=== PATIENT | male | born 1970 | race Caucasian/White ===

== ENCOUNTER 2019-05-15 13:38 | Emergency (ER) | payer OTHER | END 2019-05-15 14:36 | disposition home or self-care (01) | LOC: JERFT 13:38 ==

== ENCOUNTER 2021-12-31 08:36 | Emergency (ER) | payer OTHER ==
[2021-12-31 08:53] VITALS: BP 143/92; PULSE 89; TEMP 97.9; BMI 34.0
[2021-12-31] MEDS ORDERED: ACETAMINOPHEN 500 MG TABLET (FP) PO ONE (09:31)
[2021-12-31] MEDS ORDERED: ACETAMINOPHEN 325 MG TABLET (FP) ONE (09:34)
== END 2021-12-31 10:45 | disposition home or self-care (01) ==
LOC: JER 08:36
DX: R39.84 Bilateral non-palpable testicles (principal)
CPT/HCPCS: 99283-25

== ENCOUNTER 2022-03-06 19:00 | Emergency (ER) | payer OTHER ==
[2022-03-06 19:20] VITALS: BP 148/78; PULSE 84; TEMP 98.1; BMI 34.0
== END 2022-03-06 21:45 | disposition home or self-care (01) ==
LOC: JERFT 19:00 → JER 19:00
DX: M25.511 Pain in right shoulder (principal)
CPT/HCPCS: 93005; 93010; 99283-25

== ENCOUNTER 2022-12-24 05:12 | Day surgery (SDC) | payer OTHER ==
[2022-12-19 13:51] VITALS: BMI 36.6
[~2022-12-24 05:12] MED LIST: DEXAMETHASONE SOD PHOSPHATE 10 MG/1 ML VIAL IVPUSH ONE; IOHEXOL 180 MG/1 ML ML IJ ONE; LIDOCAINE 1% P/F 10 MG/ML VIAL PNB ONE
[2022-12-24 07:27] VITALS: RESP 18
[2022-12-24] MEDS ORDERED: LIDOCAINE HCL/PF 1% SDV 5ML VIAL ONE (07:51)
[2022-12-24] MEDS ORDERED: DEXAMETHASONE SOD PHOSPHATE 10 MG/1 ML VIAL ONE (07:52)
[2022-12-24] MEDS ORDERED: LIDOCAINE 1% P/F 10 MG/ML VIAL PNB ONE (08:52)
[2022-12-24] MEDS ORDERED: IOHEXOL 180 MG/1 ML ML IJ ONE (08:52)
[2022-12-24] MEDS ORDERED: DEXAMETHASONE SOD PHOSPHATE 10 MG/1 ML VIAL IVPUSH ONE (08:52)
[2022-12-24 10:29] VITALS: BP 123/88; PULSE 76; TEMP 97.8
== END 2022-12-24 09:42 | disposition home or self-care (01) ==
LOC: JASU-SURG 05:12
PROVIDERS: ATTEND Pain Medicine Pain Medicine
PROC: 3E0R3BZ Introduction of Anesthetic Agent into Spinal Canal, Percutaneous Approach (ICD-10-PCS; 2022-12-24)
PROC: 3E0R33Z Introduction of Anti-inflammatory into Spinal Canal, Percutaneous Approach (ICD-10-PCS; principal; 2022-12-24 08:30)
DX: M47.812 Spondylosis without myelopathy or radiculopathy, cervical region (principal)
CPT/HCPCS: 76000-TC-FY; J1100